=== PATIENT | female | born 1940 | race Two or more races ===

== ENCOUNTER 2021-08-27 12:29 | Emergency (ER) | payer MEDICARE ==
[~2021-08-27] VITALS: Ht 154.9 cm; Wt 79.4 kg
[~2021-08-27 12:29] MED LIST: FLUO20CA36 PO; OXAP600T PO; PROP80CA64 PO
[2021-08-27 12:35] VITALS: BP 189/103
--- NOTE | 2021-08-27 12:45 | NUR ---
LETICIA MONTALVO AT BEDSIDE FOR WOUND CLEANING.
--- NOTE | 2021-08-27 12:51 | NUR ---
HERONI STRIPS APPLIED BY .
--- NOTE | 2021-08-27 14:11 | NUR ---
WOUND DRESSING DONE BY [employer]OTH HAND[employer]ER.
--- NOTE | 2021-08-27 15:42 | NUR ---
Patient discharged to home in stable condition. Written and verbal after care instructions given to Patient's daughter and pt verbalizes understanding of instruction.
== END 2021-08-27 15:44 | disposition home or self-care (01) ==
LOC: ER 12:32
DX: S41.111A Laceration without foreign body of right upper arm, initial encounter (principal); S51.811A Laceration without foreign body of right forearm, initial encounter; M79.7 Fibromyalgia; Z79.899 Other long term (current) drug therapy; W01.0XXA Fall on same level from slipping, tripping and stumbling without subsequent striking against object, initial encounter; Y93.89 Activity, other specified; Y92.098 Other place in other non-institutional residence as the place of occurrence of the external cause; Y99.8 Other external cause status